=== PATIENT | male | born 1990 | race Caucasian/White ===

== ENCOUNTER 2019-10-25 10:57 | Emergency (ER) | payer BC, OTHER ==
[~2019-10-25] VITALS: Ht 180.3 cm; Wt 86.2 kg
[2019-10-25 11:47] LABS: ABSOLUTE NEUTROPHILS 1.6 thou/uL (1.4-8.2); BASOPHILS 0.9 % (0.0-2.0); HEMATOCRIT 46.2 % (42.0-52.0); HEMOGLOBIN 16.1 gm/dL (14.0-18.0); MCH 33.8 pg (26.0-34.0); MCHC 34.8 g/dL (28.0-37.0); MCV 97.1 fL (80.0-100.0); MONOCYTES 9.2 % (1.0-8.0); PLATELET COUNT 155 thou/uL (150-400); POLYS 43.9 % (36.0-66.0); RBC 4.75 mil/uL (4.50-6.00); RDW 12.7 % (10.5-14.5); WBC 3.7 thou/uL (4.0-11.0)
[2019-10-25 12:07] LABS: ANION GAP 10 mmol/L (7-16); BUN 15 mg/dL (7-18); CALCIUM 9.2 mg/dL (8.5-10.1); CHLORIDE 104 mmol/L (98-107); CO2 26 mmol/L (21-32); GLUCOSE 112 mg/dL (74-106); POTASSIUM 3.6 mmol/L (3.5-5.1); SODIUM 140 mmol/L (136-145)
[2019-10-25 12:17] LABS: ALBUMIN 4.5 g/dL (3.4-5.0); SGOT 19 U/L (15-37); SGPT 34 U/L (30-65); TOTAL BILIRUBIN 0.4 mg/dL (<0.1-1.0); TOTAL PROTEIN 7.2 g/dL (6.4-8.2); TROPONIN-I <0.06 ng/mL (<0.06)
[2019-10-25] MEDS ORDERED: TESSALON PERLE100 M1 PO (12:47)
--- NOTE | 2019-10-25 12:59 | EKG ---
[facility] [place] [address] ELECTROCARDIOGRAM REPORT Name: CATALINA CABRALES Room #: [facility].#: [id number] Admission: 10/25/19 Attend Phys: Discharge: Date of : 88 Report #: [id number] THIS REPORT FOR: cc: FAM - Family physician unknown FAM - Family physician unknown Dieudonne Conway MD ~ THIS REPORT FOR: //name// [facility] ED Test Date: 2019-10-25 Test Time: 11:48:16 Pat Name: CATALINA CABRALES Department: Room: Gender: M Bar Examiner: ANDERSON : 1990 Requested By: Mile Velázquez Order Number: [id number] MD: Dieudonne Conway Measurements Intervals [place] Rate: 65 P: 43 CT: 182 QRS: 6 QRSD: 100 T: 32 QT: 399 QTc: 415 Interpretive Statements Sinus rhythm No previous ECG available for comparison Electronically Signed On 10-25-2019 12:58:21 CDT by Dieudonne Conway [email or web address] <ELECTRONICALLY SIGNED> By: Dieudonne Conway MD 10/25/19 [id number] MD MASSIEL Hayden
[2019-10-25 13:10] VITALS: BP 140/69
== END 2019-10-25 13:11 | disposition home or self-care (01) ==
LOC: ER 10:57
PROVIDERS: Physician Assistant
DX: Z03.818 Encounter for observation for suspected exposure to other biological agents ruled out (principal); J06.9 Acute upper respiratory infection, unspecified; B34.9 Viral infection, unspecified